=== PATIENT | female | born 1960 | race Caucasian/White ===

== ENCOUNTER → 2018-05-15 | Outpatient (CLI) | payer OTHER ==
--- NOTE | 2018-05-15 17:00 | PCVCIMAG ---
APPROVED REPORT Study performed: 05/15/2018 15:06:15 EXAM: Comprehensive 2D, Doppler, and color-flow Echocardiogram Patient Location: Echo lab Status: routine BSA: 2.00 HR: 85 bpmBP: 130/90 mmHg Rhythm: NSR Other Information Study Quality: Technically Difficult Risk Factors: Cardiac Risk Factors: Hyperlipidemia Indications Dyspnea History of idiopathic pericardial effusion. 2D Dimensions IVSd: 6.20 (7-11mm)LVOT Diam: 18.14 (18-24mm) LVDd: 37.99 mm PWd: 9.48 (7-11mm) LVDs: 29.40 (25-40mm) Left Atrium: 41.57 (27-40mm) Aortic Root: 32.29 mm LV Single Plane 4CH: 60.01 % LV Single Plane 2CH: 66.40 % Biplane EF: 63.6 % Volumes Left Atrial Volume (Systole) Single Plane 4CH: 31.14 mLSingle Plane 2CH: 40.89 mL LA ESV Index: 19.00 mL/m2 Aortic Valve AoV Peak Gurvinder.: 1.37 m/s AO Peak Gr.: 7.51 mmHgLVOT Max P.00 mmHg LVOT Max V: 1.32 m/s MYLES Vmax: 2.50 cm2 Mitral Valve E/A Ratio: 1.3 MV Decel. Time: 171.04 ms MV E Max Gurvinder.: 0.92 m/s MV A Gurvinder.: 0.71 m/s TDI E/Lateral E': 8.36E/Medial E': 9.20 Medial E' Gurvinder.: 0.10 m/s Lateral E' Gurvinder.: 0.11 m/s Pulmonary Valve PV Peak Gr.: 2.63 mmHg Pulmonary Vein P Vein S: 0.61 m/sP Vein A: 0.28 m/s P Vein D: 0.47 m/sP Vein A Dur.: 55.4 msec P Vein S/D Ratio: 1.30 Left Ventricle The left ventricle is normal size. There is normal LV segmental wall motion. There is normal left ventricular wall thickness. Left ventricular systolic function is normal. The left ventricular ejection fraction is within the normal range. LVEF is 60-65%. The left ventricular diastolic function is normal. Right Ventricle The right ventricle is slit-like. 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 Atria The left atrium size is normal. Significant extrinsic compression of right heart including right atrium Aortic Valve The aortic valve is normal in structure. No aortic regurgitation is present. There is no aortic valvular stenosis. Mitral Valve The mitral valve is normal in structure. Trace mitral regurgitation. No evidence of mitral valve stenosis. Tricuspid Valve The tricuspid valve is normal in structure. There is no tricuspid valve regurgitation noted. Pulmonic Valve The pulmonary valve is normal in structure. There is no pulmonic valvular regurgitation. Great Vessels The aortic root is normal in size. IVC is normal in size and collapses >50% with inspiration. Pericardium There is no pericardial effusion. Critical Notification Critical Value: Yes Physician Notified Date: 05/15/2018 <Conclusion> Left ventricular systolic function is normal. EF 65% There is normal LV segmental wall motion. Normal diastolic function. The right ventricle is slit-like. 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 No aortic regurgitation is present. The mitral valve is normal in structure. Trace mitral insufficiency Pulmnoary artery pressure could not be reliably ascertained There is no pericardial effusion.
== END | disposition home or self-care (01) ==
LOC: PCVCIMAG 14:34
PROVIDERS: ATTEND Internal Medicine
DX: I31.3 Pericardial effusion (noninflammatory) (principal); R06.02 Shortness of breath; R94.31 Abnormal electrocardiogram [ECG] [EKG]; E78.5 Hyperlipidemia, unspecified
CPT/HCPCS: 93306